=== PATIENT | female | born 2000 | race American Indian/Alaskan Native ===

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

== ENCOUNTER 2021-02-23 20:08 | Emergency (ER) | payer OTHER ==
[2021-02-23 21:34] VITALS: BP 109/65
[2021-02-24 03:57] LABS: HCG Qualitative,Urine Negative (Negative)
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
== END 2021-02-24 06:08 | disposition home or self-care (01) ==
LOC: ED 20:08
DX: M54.9 Dorsalgia, unspecified (principal); J45.909 Unspecified asthma, uncomplicated; Z87.891 Personal history of nicotine dependence; Z79.899 Other long term (current) drug therapy; V49.49XA Driver injured in collision with other motor vehicles in traffic accident, initial encounter; Y93.89 Activity, other specified; Y92.488 Other paved roadways as the place of occurrence of the external cause; Y99.8 Other external cause status
CPT/HCPCS: 72100; 81025; 99283